=== PATIENT | female | born 1975 | race Caucasian/White ===

== ENCOUNTER 2016-12-09 00:30 | Inpatient (IN) | payer MEDICARE ==
[~2016-12-09] VITALS: Ht 165.1 cm; Wt 82.6 kg
[2016-12-09] MEDS ORDERED: LR 1,000 ML IV SCH (01:09)
[2016-12-09] MEDS ORDERED: OXYTOCIN/NORMAL SALINE 1,000 ML IV SCH (01:09)
[2016-12-09] MEDS ORDERED: LR 1,000 ML IV ONE (01:09)
[2016-12-09] MEDS ORDERED: AMPICILLIN SODIUM 1 GM in NS 50 ML IV SCH (01:15)
[2016-12-09] MEDS ORDERED: AMPICILLIN SODIUM 2 GM in NS 100 ML IV ONE (01:15)
[2016-12-09] MEDS ORDERED: TERBUTALINE SULFATE 1 MG/ML VIAL SUBCUT ONE (01:15)
[2016-12-09] MEDS ORDERED: NALBUPHINE HCL 10 MG/ML AMP IM PRN (01:15)
[2016-12-09] MEDS ORDERED: NALBUPHINE HCL 10 MG/ML AMP IVP PRN (01:15)
[2016-12-09 01:21] VITALS: BP_SYST 138
[2016-12-09 02:16] LABS: HEMATOCRIT 34.5 % (36-48); HEMOGLOBIN 11.8 g/dL (12.0-16.0); LYMPHOCYTES % (AUTO) 20.5 % (20.5-51.5); MEAN CORPUSCULAR HEMOGLOBIN 30 pg (27-31); MEAN CORPUSCULAR HGB CONC 34 % (32-36); MEAN CORPUSCULAR VOLUME 87 fL (79.0-98.0); NEUTROPHILS % (AUTO) 67.6 % (40.0-70.0); PLATELET COUNT (AUTO) 189 K/uL (130-430); RED BLOOD CELL COUNT(AUTO) 3.97 MIL/uL (4.2-6.2); RED CELL DISTRIBUTION WIDTH 13.9 % (9.0-15.0); WHITE BLOOD COUNT (AUTO) 7.8 K/uL (4.8-10.8)
[2016-12-09 02:17] LABS: BASOPHILS # (AUTO) 0.1 K/uL (0.0-0.2); BASOPHILS % (AUTO) 0.7 % (0.0-2.0); EOSINOPHILS # (AUTO) 0.1 K/uL (0.0-0.4); EOSINOPHILS % (AUTO) 1.7 % (0.0-4.0); LYMPHOCYTES # (AUTO) 1.6 K/uL (1.0-5.5); MONOCYTES # (AUTO) 0.7 K/uL (0.0-1.0); MONOCYTES % (AUTO) 9.5 % (1.7-9.3); NEUTROPHILS # (AUTO) 5.3 K/uL (1.8-7.7)
[2016-12-09] MEDS ORDERED: AMPICILLIN SODIUM 2 GM VIAL ONE (02:19)
[2016-12-09] MEDS ORDERED: OXYTOCIN/NORMAL SALINE 1,000 ML IV ONE (02:55)
[2016-12-09] MEDS ORDERED: METHYLERGONOVINE MALEATE 0.2 MG TABLET PO PRN (03:00)
[2016-12-09] MEDS ORDERED: LANOLIN 7 GM OINT. TP PRN (03:00)
[2016-12-09] MEDS ORDERED: OXYCODONE/ACETAMINOPHEN 5-325 TABLET PO PRN (03:00)
[2016-12-09] MEDS ORDERED: HYDROcodone/ACETAMIN 5-325 MG TAB (NORCO/ VICODIN) PO PRN (03:00)
[2016-12-09] MEDS ORDERED: RHO(D) IMMUNE GLOBULIN/MALTOSE 1500 UNITS/1.3 ML (WINHRO) IM PRN (03:00)
[2016-12-09] MEDS ORDERED: DERMOPLAST SPRAY TP PRN (03:00)
[2016-12-09] MEDS ORDERED: SENNOSIDES/DOCUSATE SODIUM 1 TAB TABLET(SENOKOT-S) PO PRN (03:00)
[2016-12-09] MEDS ORDERED: GLYCERIN/WITCH HAZEL (TUCKS PADS) TP PRN (03:00)
[2016-12-09] MEDS ORDERED: HYDROCORTISONE 0.5%, 28.35 GM TOPICAL CREAM TP PRN (03:00)
[2016-12-09] MEDS ORDERED: ANUSOL 1 EA SUPP.RECT (PREPARATION H) RC PRN (03:00)
[2016-12-09] MEDS ORDERED: DOCUSATE SODIUM 100 MG CAPSULE PO PRN (03:00)
[2016-12-09] MEDS ORDERED: MINERAL OIL 30 ML UDC ONE (09:00)
[2016-12-09] MEDS ORDERED: LIDOCAINE PF 1% 30ML(POUR BTL) INJ ONE (09:00)
[2016-12-09] MEDS: IBUPROFEN 800 MG TABLET PO PRN ×2 (10:05→17:58)
[2016-12-09] MEDS ORDERED: TEMAZEPAM 15 MG CAPSULE PO PRN (21:00)
[2016-12-10] MEDS: IBUPROFEN 800 MG TABLET PO PRN ×3 (00:18→11:56)
[2016-12-10 06:49] LABS: HEMATOCRIT 29.3 % (36-48); HEMOGLOBIN 9.8 g/dL (12.0-16.0)
== END 2016-12-10 13:58 | disposition home or self-care (01) | DRG 560 ==
LOC: OBSVTOIN 00:30 → SPU 00:30
PROVIDERS: ADMIT Specialist; ATTEND Specialist
PROC: 10E0XZZ Delivery of Products of Conception, External Approach (ICD-10-PCS; principal; 2016-12-09)
PROC: 0KQM0ZZ Repair Perineum Muscle, Open Approach (ICD-10-PCS; 2016-12-09)
DX: O70.1 Second degree perineal laceration during delivery (principal); O99.824 Streptococcus B carrier state complicating childbirth; O09.523 Supervision of elderly multigravida, third trimester; Z37.0 Single live birth; Z3A.40 40 weeks gestation of pregnancy
CPT/HCPCS: 36415; 85018-TC; 85025; 86592; 86886; 86900; 86901; J0290; J2001